=== PATIENT | male | born 1985 | race Caucasian/White ===

== ENCOUNTER 2022-01-17 11:23 | Emergency (ER) | payer BC, SELFPAY ==
[2022-01-17 11:24] VITALS: BP 152/116; PULSE 73; RESP 18; TEMP 36.1; O2SAT 99; BMI 25.0
--- NOTE | 2022-01-17 11:30 | EKG12_ITS ---
Test Reason : HTN Blood Pressure : / mmHG Vent. Rate : 068 BPM Atrial Rate : 068 BPM P-R Int : 126 ms QRS Dur : 086 ms QT Int : 368 ms P-R-T Axes : 041 010 033 degrees QTc Int : 391 ms Normal sinus rhythm with sinus arrhythmia Normal ECG Confirmed by ESPERANZA ROJAS, KAMILA ([id number]), state editor LALA MENDOZA ([id number]) on 01/20/2022 10:04:33 A M Referred By: [facility] Confirmed By:LOR MATA MD
[2022-01-17 12:45] VITALS: BP 155/116; PULSE 72; RESP 16; O2SAT 97
--- NOTE | 2022-01-17 14:55 | EX.ED.DYSGE1 ---
HPI History of Present Illness Chief Complaint: Hypertension Narrative Narrative: 37-year-old male presenting with high blood pressure. He states been elevated for the last 3 weeks or so. Patient noted it was elevated when he was at the dentist office at that time. He states his diastolic blood pressure has been in the 110-115 range. His systolic blood pressure has been in the 160-170 range typically. Patient has no history of hypertension. He is currently trying to get established with Dr. Holloway however there was some paperwork issues and the patient was not able to be seen. He went to the urgent care where his blood pressure was elevated and they sent him to the emergency room. He has no headache, dizziness, visual complaints, chest pain, palpitations, shortness of breath. He is asymptomatic of his high blood pressure. He states he has no other medical problems. [facility] Medical History Acute streptococcal pharyngitis Encounter for screening for COVID-19 Knee pain Home Medications lisinopril 10 mg PO DAILY #30 tab 01/17/22 [Rx Last Taken Unknown] Allergy/AdvReac Type Severity Reaction Status Date / Time Penicillins [PCN] Allergy Hives Verified 01/17/22 11:24 Family History Mother Diabetes Hypertension Social History Smoking Status: Never smoker alcohol intake: current alcohol intake frequency: a few times a week Alcohol type: beer ROS ROS ED Constitutional Constitutional ED: Denies chills or fever(s) Eyes Eyes: Denies blurry vision or diplopia ENT ENT ED: Denies rhinorrhea or sore throat Cardiovascular Cardiovascular: Denies palpitations or racing heartbeat Respiratory/Chest Respiratory/Chest: Denies cough or dyspnea Gastrointestinal Gastrointestinal: Denies abdominal pain, nausea or vomiting Genitourinary Genitourinary ED: Denies dysuria or hematuria Musculoskeletal Musculoskeletal: Denies arthralgias or myalgias Integumentary Denies abscess or rash Neurologic Neurologic: Denies headache(s), paresthesias or weakness EXAM Physical Exam Const Vital Signs: 01/17/22 11:24 01/17/22 12:45 01/17/22 12:47 Temperature 97 F L Temperature Source Temporal Pulse Rate 73 72 Respiratory Rate 18 16 Respiratory Effort Normal Non-Labored Blood Pressure 152/116 H 155/116 H Blood Pressure Mean 128 Pulse Ox 99 97 Oxygen Delivery Method Room Air Positive well nourished General Appearance ED: NAD; Negative for pallor HEENT Reports normocephalic, head/scalp atraumatic and moist mucous membranes Eyes PERRL and EOMs intact bilaterally Resp normal respiratory effort and clear to auscultation bilaterally Auscultation: Negative for rales, rhonchi or wheezes Cardio regular rate and regular rhythm Narrative: Deferred Extremity normal to inspection General Extremety ED: Negative for edema or tenderness General Extremity: Negative for edema Neuro oriented x3, CN's II-XII intact bilaterally and no sensory deficits noted Sensorium / Orientation: alert Motor Exam: strength 5/5 throughout Psych mental status grossly normal Attitude: No agitated Skin no rashes or lesions noted and no wounds General Skin Exam: Negative for jaundice or pallor MDM MDM MDM Narrative Medical decision making narrative: Patient presenting with asymptomatic hypertension. He is trying to get this addressed but was unable to get in to her primary care office today. Urgent care sent him to the emergency room. Patient's blood pressure is 155/116 here. I do think he needs to be started on an antihypertensive because he is documenting at least 3 weeks of elevated blood pressures. I was able to speak with Dr. Holloway who will see him in follow-up for his initial visit. He recommended starting the patient on lisinopril 10 mg p.o. daily. This was provided as a prescription for the patient. I do not think he needs blood work or imaging. Patient is amenable to this plan. He is to keep a blood pressure diary when he follows up with Dr. Holloway. Impression: 1. Hypertension Lab Data Attestation: I reviewed the patient's lab results. Discharge Plan Triage Chief Complaint: Hypertension ED Provider: Mukesh Kidd Dx/Rx/DC Orders Instructions: ED Hypertension New Begin Treatment Prescriptions: New lisinopril 10 mg tablet 10 mg PO DAILY Qty: 30 RF: 1 Primary Care Provider: Care Physician,No Primary Referrals: Raymundo Holloway MD [STAFF PHYSICIAN] - As soon as possible Care Physician,No Primary [Primary Care Provider] - Disposition Disposition: Home, Self Care Discharge Date/Time: 01/17/22 12:47
== END 2022-01-17 12:47 | disposition home or self-care (01) ==
PROVIDERS: Emergency Provider Student in an Organized Health Care Education/Training Program; Visit Provider Student in an Organized Health Care Education/Training Program
DX: I10 Essential (primary) hypertension (principal)
CPT/HCPCS: 93005; 99282

== ENCOUNTER → 2022-02-03 | Outpatient (CLI) | payer BC, SELFPAY ==
[2022-02-03 10:35] LABS: Anion Gap 6 (5-15); BUN 17 mg/dL (7-18); BUN/Creat Ratio 15.9 RATIO (10-20); Calcium,Total 8.8 mg/dL (8.5-10.1); Chloride 106 mmol/L (98-107); Cholesterol 195 mg/dL (200); Creatinine, Serum 1.07 mg/dL (0.70-1.30); EST Glomerular Filtration Rate 84 mL/min (>60); Est Glom Filt Rate - Afr Amer 101 mL/min (>60); Glucose 108 mg/dL (74-106); High Density Lipoprotein 42 mg/dL; Potassium 4.1 mmol/L (3.5-5.1); Sodium Level 137 mmol/L (136-145); Triglycerides 208 mg/dL; Very Low Density Lipoprotein 42 mg/dL (5-40)
== END | disposition home or self-care (01) ==
LOC: MFPLAB 08:48
PROVIDERS: Visit Provider Family Medicine
DX: I10 Essential (primary) hypertension (principal)
CPT/HCPCS: 36415; 80048; 80061

== ENCOUNTER → 2022-08-04 | Outpatient (CLI) | payer BC, SELFPAY ==
[2022-08-04 12:49] LABS: Anion Gap 6 (5-15); BUN 15 mg/dL (7-18); BUN/Creat Ratio 14.3 RATIO (10-20); Calcium,Total 9.7 mg/dL (8.5-10.1); Chloride 104 mmol/L (98-107); Creatinine, Serum 1.05 mg/dL (0.70-1.30); EST Glomerular Filtration Rate 85 mL/min (>60); Est Glom Filt Rate - Afr Amer 103 mL/min (>60); Glucose 76 mg/dL (74-106); Potassium 4.2 mmol/L (3.5-5.1); Sodium Level 140 mmol/L (136-145)
== END | disposition home or self-care (01) ==
LOC: MFPLAB 10:35
PROVIDERS: Visit Provider Family Medicine
DX: I10 Essential (primary) hypertension (principal)
CPT/HCPCS: 36415; 80048

== ENCOUNTER → 2023-08-06 | Outpatient (CLI) | payer BC, SELFPAY ==
[2023-08-06 13:07] LABS: Anion Gap 5 (5-15); BUN 19 mg/dL (7-18); Chloride 107 mmol/L (98-107); Cholesterol 184 mg/dL (200); EST Glomerular Filtration Rate 90 mL/min (>60); Est Glom Filt Rate - Afr Amer 109 mL/min (>60); Glucose 104 mg/dL (74-106); High Density Lipoprotein 41 mg/dL; Potassium 4.5 mmol/L (3.5-5.1); Sodium Level 137 mmol/L (136-145); Triglycerides 174 mg/dL; Very Low Density Lipoprotein 35 mg/dL (5-40)
== END | disposition home or self-care (01) ==
PROVIDERS: Referring Provider Family Medicine; Visit Provider Family Medicine
DX: Z00.00 Encounter for general adult medical examination without abnormal findings (principal)
CPT/HCPCS: 36415; 80048; 80061

== ENCOUNTER → 2023-09-28 | Outpatient (CLI) | payer BC, SELFPAY ==
--- NOTE | 2023-09-28 10:26 | RAD_ITS ---
STUDY: X-RAY - LUMBAR SPINE REASON FOR EXAM: Male, 38 years old. Back pain following a fall. TECHNIQUE: 2 view(s) of the lumbar spine were obtained. COMPARISON: None FINDINGS: There is straightening of the normal lumbar lordosis. There is no substantial scoliosis. There is a normal alignment of the vertebrae. Normal vertebral bodies and endplates. Normal disc space heights. There is a 1.2 cm rounded calcification on the lateral view. This may represent a calcified gallstone. RAD/Lumbar Spine 2 or 3 Views IMPRESSION: Straightening of the normal lumbar lordosis most sec descended to muscle spasm. Questionable calcified 1.2 cm gallstone. Electronically Signed: Emil Rowland MD at 11:08 EST ,
--- NOTE | 2023-09-28 10:26 | RAD_ITS ---
STUDY: X-RAY - SACRUM/COCCYX REASON FOR EXAM: Male, 38 years old. Fall TECHNIQUE: 3 view(s) of the sacrum and coccyx were obtained. COMPARISON: None. FINDINGS: Normal bilateral sacroiliac joints. Normal visualized sacral ala and fused sacral bodies. Normal sacrococcygeal junction with a normal angulation. Normal coccygeal segments. The presacral soft tissue structures are unremarkable. RAD/Sacrum-Coccyx min 2 Views IMPRESSION: Normal x-rays of the sacrum and coccyx. Electronically Signed: Emil Rowland MD at 11:09 EST ,
== END | disposition home or self-care (01) ==
PROVIDERS: PCP Family Medicine; Referring Provider Physician Assistant; Visit Provider Physician Assistant
DX: M40.46 Postural lordosis, lumbar region (principal); W19.XXXA Unspecified fall, initial encounter
CPT/HCPCS: 72100; 72220

== ENCOUNTER → 2024-08-08 | Outpatient (CLI) | payer BC, SELFPAY ==
[2024-08-08 15:52] LABS: Anion Gap 5 (5-15); BUN 15 mg/dL (7-18); BUN/Creat Ratio 14.7 RATIO (10-20); Calcium,Total 9.6 mg/dL (8.5-10.1); Chloride 106 mmol/L (98-107); Cholesterol 190 mg/dL (200); Creatinine, Serum 1.02 mg/dL (0.70-1.30); EST Glomerular Filtration Rate 87 mL/min (>60); Est Glom Filt Rate - Afr Amer 105 mL/min (>60); Glucose 92 mg/dL (74-106); High Density Lipoprotein 45 mg/dL; Potassium 4.4 mmol/L (3.5-5.1); Sodium Level 139 mmol/L (136-145); Triglycerides 162 mg/dL; Very Low Density Lipoprotein 32 mg/dL (5-40)
== END | disposition home or self-care (01) ==
PROVIDERS: PCP Family Medicine; Referring Provider Family Medicine; Visit Provider Family Medicine
DX: I10 Essential (primary) hypertension (principal)
CPT/HCPCS: 36415; 80048; 80061

== ENCOUNTER → 2025-06-15 | Outpatient (CLI) | payer BC, SELFPAY ==
--- NOTE | 2025-06-15 10:25 | RAD_ITS ---
PROCEDURE: L/S SPINE MIN 4 VIEWS 06/15/2025 REASON FOR EXAM: PAIN TECHNIQUE: Procedure Code: [id number] Modality: DX Procedure: L/S SPINE MIN 4 VIEWS COMPARISON: None FINDINGS: There are no compression fractures. There is maintenance of the normal lumbar lordosis. There is mild dextroscoliosis of the thoracolumbar spine. The intervertebral disc spaces are preserved. The facet joints are normal. There is no spondylolisthesis. The SI joints are normal. The paravertebral soft tissues are normal. RAD/L/S Spine Min 4 Views IMPRESSION: Dextroscoliosis. Reading Location: [place] [id number]
== END | disposition home or self-care (01) ==
LOC: MTRAD 10:23
PROVIDERS: PCP Family Medicine; Referring Provider Family Medicine; Visit Provider Family Medicine
DX: M54.9 Dorsalgia, unspecified (principal)
CPT/HCPCS: 72110